=== PATIENT | female | born 1995 | race Caucasian/White ===

== ENCOUNTER 2019-10-31 13:27 | Outpatient (CLI) | payer OTHER | END 2019-10-31 13:28 | disposition home or self-care (01) | LOC: COV 13:27 | PROVIDERS: ATTEND Family Medicine | DX: R05 Cough (principal); R53.83 Other fatigue; R09.81 Nasal congestion; Z20.828 Contact with and (suspected) exposure to other viral communicable diseases ==

== ENCOUNTER 2020-03-26 08:00 | Outpatient (CLI) | payer OTHER | END 2020-03-26 23:59 | disposition home or self-care (01) | LOC: LAB.R 08:00 | PROVIDERS: ATTEND Physician Assistant Medical | DX: J15.8 Pneumonia due to other specified bacteria (principal); Z20.828 Contact with and (suspected) exposure to other viral communicable diseases ==

== ENCOUNTER 2021-03-03 15:16 | Emergency (ER) | payer OTHER ==
--- NOTE | 2021-03-03 16:13 | ED Physician Documentation ---
PD HPI LOWER EXT INJURY - Stated complaint Stated Complaint: L RHODES INJURY - Chief complaint Chief Complaint: Laceration - History obtained from History obtained from: Patient - History of Present Illness PD HPI LOW EXT INJURY LOCATION: Left, Lower leg Type of injury: Blunt / blow (a board on her deck broke and her leg went through it, causing impact/laceration to anterior mid rhodes. Pain with walking.) Where injury occurred: Home Timing - onset: Today Timing - details: Abrupt onset Associated symptoms: Other (she got lightheaded upon seeing the bleeding/sight of the laceration and nearly fainted. Has had similar response to blood and pain in the past.). No: Weakness, Numbness Similar symptoms before: Has not had sx before Recently seen: Not recently seen Review of Systems Constitutional: denies: Fever, Chills Nose: denies: Rhinorrhea / runny nose, Congestion Throat: denies: Sore throat Respiratory: denies: Cough GI: reports: Nausea (briefly after the injury.). 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 : None HEENT: None Psych: None Musculoskeletal: None Derm: None - Past Surgical History Past Surgical History: No - Present Medications Home Medications: Ambulatory Orders Medication Instructions Recorded Confirmed No Known Home Medications 03/03/21 03/03/21 - Allergies Allergies/Adverse Reactions: Allergies Allergy/AdvReac Type Severity Reaction Status Date / Time No Known Drug Allergies Allergy Verified 03/03/21 15:59 - Social History Does the pt smoke?: No Smoking Status: Current some day smoker Does the pt drink ETOH?: No Does the pt have substance abuse?: Yes Substance Use and Type: Marijuana - Immunizations Immunizations are current?: No Immunizations: Other immun not current PD ED PE NORMAL - Vitals Vital signs reviewed: Yes - General General: Alert and oriented X 3, Well developed/nourished - Cardiac Cardiac: RRR, No murmur - Respiratory Respiratory: Clear bilaterally - Derm Derm: Normal color, Warm and dry - Extremities Extremities: Other (left anterior mid tibial area with v shaped laceration with mild bleeding. No FB. Bone not exposed but still has some fatty tissue covering. Soft tissue tender around the area. ) - Neuro Neuro: Alert and oriented X 3, No motor deficit, No sensory deficit, Normal speech Results - Vitals Vitals: Vital Signs - 24 hr 03/03/21 03/03/21 16:00 16:21 Temperature 36.1 C L 36.7 C Heart Rate 62 54 L Respiratory 18 18 Rate Blood Pressure 147/94 H 124/102 H O2 Saturation 100 100 Oxygen O2 Source Room air - Rads (name of study) tib/fib Radiology: Prelim report reviewed (no fractures), See rad report Procedures - Laceration (location) left anterior tibial area Length in cm: 2 Wound type: Flap, Into subcut fat Neurovascular status: Sensory intact, Motor intact Anesthesia: Lidocaine 1% with epi Wound preparation: Irrigated copiously NS, Wound explored, To the base Skin layer closure: Nylon, Interrupted, Size #-0 - enter number (4), Sutures - enter # (5) Other: Patient tolerated well, No complications, Neurovascular intact, Tetanus booster given PD MEDICAL DECISION MAKING - ED course Complexity details: reviewed results, considered differential, d/w patient Departure - Departure Disposition: 01 Home, Self Care Clinical Impression: Laceration of lower leg Qualifiers: Encounter type: initial encounter Laterality: left Qualified Code(s): S81.812A - Laceration without foreign body, left lower leg, initial encounter Contusion, lower leg Qualifiers: Encounter type: initial encounter Laterality: left Qualified Code(s): S80.12XA - Contusion of left lower leg, initial encounter Condition: Stable Record reviewed to determine appropriate education?: Yes Instructions: ED Laceration Ext Sutr Stap Tape Comments: Ice to the wounded area periodically tonight tomorrow to help reduce inflammation/swelling. Consider anti-inflammatory such as ibuprofen 400 to 600 mg three times a day for the next few days. To that add Tylenol every 4-6 hours if needed. It is okay to wash and shower. Clean off the wound twice a day with soap and water, or peroxide and water. Apply some antibiotic ointment to it to keep it moist. Also to watch for signs of infection such as purulence, redness or increasing pain. Return to your primary care or the ER at the specified time for suture removal. Suture removal 8 to 10 days. Activity as tolerated walking in such on the foot and leg. Your x-ray did not show any fractures. You were given a tetanus booster here in the ER, this will be good for 10 years before needing updating. Discharge Date/Time: 03/03/21 17:28
[2021-03-03 16:22] VITALS: BP 124/102
[2021-03-03] MEDS ORDERED: LIDOCAINE 1%-EPI 1:100000 20 ML MDV SUBQ STA (16:22)
[2021-03-03] MEDS ORDERED: ONDANSETRON ODT 4 MG TABLET TL STA (16:22)
[2021-03-03] MEDS ORDERED: IBUPROFEN 600 MG TABLET PO STA (16:22)
[2021-03-03] MEDS ORDERED: TETANUS/DIPHTHERIA/PERTUSSIS 0.5 ML SYRINGE IM ONE (16:24)
--- NOTE | 2021-03-03 16:54 | XRAY Report ---
PROCEDURE: Tib/Fib LT INDICATIONS: struck rhodes, with pain on walking TECHNIQUE: 2 views of the tibia and fibula were acquired. COMPARISON: None. FINDINGS: Bones: No fractures or dislocations. No bony erosion or cortical destruction. No periosteal reaction . No suspicious bony lesions. Soft tissues: Soft tissue wound involving anterior aspect of mid tibial shaft is seen. No suspicious soft tissue calcifications or masses. IMPRESSION: Anterior lower leg soft tissue wound. No radiopaque foreign body. No lower leg fracture or dislocatio n. No radiographic evidence of osteomyelitis. Reviewed by: Addy Avila MD on 03/03/2021 4:53 PM PST Approved by: Addy Avila MD on 03/03/2021 4:53 PM PST Station ID: [id number]
[2021-03-03] MEDS ORDERED: BACITRACIN ZINC OINT 1 PACKET TOP STA (17:04)
== END 2021-03-03 17:28 | disposition home or self-care (01) ==
LOC: ED 15:16
DX: S81.812A Laceration without foreign body, left lower leg, initial encounter (principal); W26.8XXA Contact with other sharp object(s), not elsewhere classified, initial encounter; Y93.89 Activity, other specified; Y92.008 Other place in unspecified non-institutional (private) residence as the place of occurrence of the external cause; F17.200 Nicotine dependence, unspecified, uncomplicated
CPT/HCPCS: 12001; 73590; 90471; 90715; 99282; 99283; A9270; Q0162

== ENCOUNTER 2022-04-21 22:37 | Emergency (ER) | payer BC, OTHER ==
[2022-04-21 23:15] LABS: BASOPHILS # (AUTO) 0.1 10^3/uL (0.0-0.1); BASOPHILS % (AUTO) 0.3 %; EOSINOPHILS # (AUTO) 0.2 10^3/uL (0.0-0.7); EOSINOPHILS % (AUTO) 1.5 %; HCT - HEMATOCRIT 39.5 % (37.0-47.0); HGB - HEMOGLOBIN 12.7 g/dL (12.0-16.0); LYMPHOCYTES # (AUTO) 2.9 10^3/uL (1.5-3.5); LYMPHOCYTES % (AUTO) 19.6 %; MEAN CORPUSCULAR HEMOGLOBIN 29.1 pg (27.0-31.0); MEAN CORPUSCULAR HGB CONC 32.2 g/dL (32.0-36.0); MEAN CORPUSCULAR VOLUME 90.6 fL (81.0-99.0); MEAN PLATELET VOLUME 9.7 fL (7.9-10.8); MONOCYTES # (AUTO) 0.7 10^3/uL (0.0-1.0); MONOCYTES % (AUTO) 4.7 %; NEUTROPHILS # (AUTO) 10.9 10^3/uL (1.5-6.6); NEUTROPHILS % (AUTO) 73.4 %; PLT - PLATELET COUNT 326 10^3/uL (130-450); RED BLOOD COUNT 4.36 10^6/uL (4.20-5.40); RED CELL DISTRIBUTION WIDTH 13.3 % (12.0-15.0); WHITE BLOOD COUNT 14.9 x10^3/uL (4.8-10.8)
--- NOTE | 2022-04-21 23:33 | ED Physician Documentation ---
PD HPI FEMALE - Stated complaint Stated Complaint: CRAMPING - Chief complaint Chief Complaint: Abd Pain - History obtained from History obtained from: Patient - History of Present Illness Timing - onset: Yesterday Timing - details: Abrupt onset, Intermittant Pain level max: 10 Associated symptoms: Pelvic pain, Vaginal bleeding. 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 Patient is approximately 12 weeks . She has not had an ultrasound yet in this . She does not know her blood type. This is her second ; she had no complications or difficulties with her first , she has a healthy 7-year-old child as a result of the first . HPI from patient Review of Systems Constitutional: reports: Reviewed and negative GI: reports: Abdominal Pain (Suprapubic pain). 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 : None HEENT: None Psych: None Musculoskeletal: None Derm: None - Past Surgical History Past Surgical History: No - Present Medications Home Medications: Ambulatory Orders Medication Instructions Recorded Confirmed No Known Home Medications 03/03/21 04/21/22 - Allergies Allergies/Adverse Reactions: Allergies Allergy/AdvReac Type Severity Reaction Status Date / Time No Known Drug Allergies Allergy Verified 04/21/22 22:48 - Social History Does the pt smoke?: No Smoking Status: Current some day smoker Does the pt drink ETOH?: No Does the pt have substance abuse?: Yes - Immunizations Immunizations are current?: No Immunizations: Other immun not current PD ED PE NORMAL - Vitals Vital signs reviewed: Yes - General General: Alert and oriented X 3, No acute distress, Well developed/nourished - Cardiac Cardiac: RRR, No murmur - Respiratory Respiratory: No respiratory distress, Clear bilaterally - Abdomen Abdomen: Normal bowel sounds, Soft, Non distended, Other (Mild suprapubic tenderness to palpation without rebound or guarding. She is nontender on abdominal exam all 4 quadrants besides the suprapubic area) - Back Back: No CVA TTP Results - Vitals Vitals: Vital Signs - 24 hr 04/21/22 04/21/22 04/22/22 22:42 22:48 00:48 Temperature 36.6 C Heart Rate 76 72 83 Respiratory 18 18 18 Rate Blood Pressure 107/73 108/56 L 112/65 O2 Saturation 100 100 99 04/22/22 04/22/22 02:00 02:37 Temperature Heart Rate 71 87 Respiratory 18 18 Rate Blood Pressure 106/57 L 112/87 H O2 Saturation 99 99 Oxygen O2 Source Room air - Labs Labs: Laboratory Tests 04/21/22 04/21/22 04/21/22 23:05 23:05 23:05 WBC 14.9 H RBC 4.36 Hgb 12.7 Hct 39.5 MCV 90.6 MCH 29.1 MCHC 32.2 RDW 13.3 Plt Count 326 MPV 9.7 Neut # (Auto) 10.9 H Lymph # (Auto) 2.9 [place] # (Auto) 0.7 Eos # (Auto) 0.2 Baso # (Auto) 0.1 Absolute Nucleated RBC 0.00 Nucleated RBC % 0.0 Sodium 137 Potassium 3.2 L Chloride 101 Carbon Dioxide 26 Anion Gap 10.0 BUN 12 Creatinine 0.5 Estimated GFR (MDRD) 148 Glucose 84 Calcium 9.5 Total Bilirubin 0.8 AST 43 H ALT 67 H Alkaline Phosphatase 67 Total Protein 7.6 Albumin 4.3 Globulin 3.3 Albumin/Globulin Ratio 1.3 Lipase 30 HCG, Quant Blood Type O POSITIVE 04/21/22 23:05 WBC RBC Hgb Hct MCV MCH MCHC RDW Plt Count MPV Neut # (Auto) Lymph # (Auto) [place] # (Auto) Eos # (Auto) Baso # (Auto) Absolute Nucleated RBC Nucleated RBC % Sodium Potassium Chloride Carbon Dioxide Anion Gap BUN Creatinine Estimated GFR (MDRD) Glucose Calcium Total Bilirubin AST ALT Alkaline Phosphatase Total Protein Albumin Globulin Albumin/Globulin Ratio Lipase HCG, Quant 5470.00 Blood Type - Rads (name of study) first trimester US Radiology: Prelim report reviewed, See rad report PD Medical Decision Making - ED course Complexity details: reviewed results, re-evaluated patient, considered differential, d/w patient Reviewed Lab Results: Tests ordered and results reviewed by me: CBC, serum quantitative hCG, blood type. ER abdominal panel. She has a normal H and H (hemoglobin 12.7, hematocrit 39.5). She has a mild leukocytosis, white blood cell count 14.9. There is no element of history nor physical to suggest an acute infection. She has mild hypokalemia with potassium of 3.2. For this she is given 20 mEq of potassium chloride in the emergency department (p.o.). She has minimally elevated transaminases, with AST of 43 and ALT of 67. Her other liver function tests are normal, and thus these minimal elevations in her transaminases can be reassessed in the outpatient setting; such minimal elevations would be unlikely to represent an acute or emergent concerning process. ED course: HPI from patient. RhoGAM is considered, but her blood type results as O positive, obviating the need for RhoGAM. The ultrasound does not show evidence of intrauterine . The findings per the radiologist read are suggestive of sequelae of a spontaneous in progress. I discussed the results of the ultrasound with the patient and the suspected diagnosis of spontaneous miscarriage. At the time of this reevaluation, the patient reports that her cramping pain has resolved and her vaginal bleeding is minimal since the initial evaluation. Because her hCG quantitative is over 5000 and no IUP is visualized, ectopic , though unlikely, still is on the differential diagnosis. I consulted the on-call INTENSIVIST on-call (Dr. Medrano) regarding this case. He says someone from the office will contact the patient later today (April 22) to advise her regarding follow-up. I relayed this information regarding this conversation with the INTENSIVIST to the patient and instructed her to contact their office if she has not heard from the office by noon. Departure - Departure Disposition: 01 Home, Self Care Clinical Impression: Miscarriage Condition: Good Instructions: ED Miscarriage Incom Follow-Up: Luzmaria Venegas, GALDINO, [facility] TECHNICIAN [Provider Admit Priv/Credential] - Comments: The findings on the ultrasound tonight are discouraging. There was no evidence of a in the uterus; Your hCG level (" hormone" level, which was checked on the blood test performed tonight) is certainly high enough that there should be evidence of an intrauterine at this point. The most likely explanation for this combination of findings is a miscarriage in progress. As we discussed, another possibility, though very unlikely, would be a tubal (or ectopic) . You will need to follow-up with your INTENSIVIST within the next several days. I spoke with the on-call INTENSIVIST, Dr. Medrano, and he says that you should keep your scheduled appointment with Luzmaria Ramirez, but that you will likely be contacted later today by someone from the office to assess whether you need to follow-up sooner. Incidentally noted were a mildly low potassium level for which you were given a dose of potassium orally. You should follow-up with your primary care provider regarding this finding, as they will likely recheck your potassium level somewhere in the next few weeks. Also incidental note was made of very mildly elevated liver enzyme tests. You should follow-up with your primary care provider for this finding as well; most likely they will recheck these tests in the coming weeks. Discharge Date/Time: 04/22/22 02:38
[2022-04-21 23:36] LABS: ALBUMIN 4.3 g/dL (3.2-5.5); ALBUMIN/GLOBULIN RATIO 1.3 (1.0-2.2); BILIRUBIN,TOTAL 0.8 mg/dL (0.2-1.0); CALCIUM 9.5 mg/dL (8.5-10.3); CREATININE 0.5 mg/dL (0.4-1.0); POTASSIUM 3.2 mmol/L (3.5-5.0); TOTAL PROTEIN 7.6 g/dL (6.7-8.2)
[2022-04-21] MEDS ORDERED: POTASSIUM CHLORIDE 20 MEQ TABLET PO STA (23:56)
--- NOTE | 2022-04-22 01:59 | Ultrasound Report ---
PROCEDURE: OB First Trimester w/TV INDICATIONS: , vaginal bleeding OUTSIDE/PRIOR DATING DATA: Last menstrual period (LMP): 02/26/2022. LMP-based estimated date of delivery (ANGELA): 11/23/2022. TECHNIQUE: Real-time scanning was performed of the fetus and maternal pelvic organs, with image documentation. Endovaginal scanning was also performed to better visualize the fetus and maternal ovaries. COMPARISON: None. FINDINGS: Uterus: No intrauterine is identified. There is distention of the endometrium in the lower uterine segment measuring up to approximately 2.1 cm. There is a masslike filling defect within the c ervical canal measuring up to 1.9 x 1.4 x 2.0 cm. A small hypoechoic cystic focus within the endometr ium is noted measuring up to 0.4 cm. Findings are suggestive of blood clot. Ovaries: The ovaries appear within normal size limits. No adnexal masses. IMPRESSION: 1. No intrauterine identified. 2. Heterogeneous thickening of the endometrium and masslike filling defect within the cervical canal likely represent blood product. Findings likely reflect sequelae of a spontaneous in progres s. Recommend continued clinical follow-up and repeat study if indicated. Reviewed by: Chucho Clancy MD on 04/22/2022 1:57 AM PST Approved by: Chucho Clancy MD on 04/22/2022 1:57 AM PST Station ID: [id number]
[2022-04-22 02:38] VITALS: BP 112/87
== END 2022-04-22 02:38 | disposition home or self-care (01) ==
LOC: ED 22:37
DX: O03.9 Complete or unspecified spontaneous abortion without complication (principal); O03.83 Metabolic disorder following complete or unspecified spontaneous abortion; E87.6 Hypokalemia; Z3A.12 12 weeks gestation of pregnancy; F17.200 Nicotine dependence, unspecified, uncomplicated
CPT/HCPCS: 36415; 76801; 76817; 80053; 83690; 84702; 85025; 86900; 86901; 99284; A9270

== ENCOUNTER 2022-04-30 14:41 | Outpatient (CLI) | payer BC | END 2022-04-30 14:42 | disposition home or self-care (01) | LOC: LAB 14:41 | PROVIDERS: ATTEND Nurse Practitioner Obstetrics & Gynecology | DX: O03.39 Incomplete spontaneous abortion with other complications (principal) | CPT/HCPCS: 36415; 84702 ==

== ENCOUNTER 2023-03-14 07:13 | Outpatient (CLI) | payer OTHER | END 2023-03-14 07:14 | disposition EMS.NT | LOC: EMS 07:13 | DX: M79.662 Pain in left lower leg (principal); V48.5XXA Car driver injured in noncollision transport accident in traffic accident, initial encounter; Y92.414 Local residential or business street as the place of occurrence of the external cause ==